=== PATIENT | female | born 1940 | race Caucasian/White ===

== ENCOUNTER 2023-03-09 10:48 | Outpatient (REF) | payer MEDICARE, SELFPAY ==
--- NOTE | ~2023-03-09 | XR_ITS ---
Study: Bilateral hands INDICATION: Chondrocalcinosis. COMPARISON: None TECHNIQUE: 4 views each hand FINDINGS: Right: Advanced diffuse interphalangeal joint space narrowings, sclerosis and spurring, most severe in the third digit with flexed PIP and soft tissue swelling. Soft tissue swelling also seen about the second PIP. Mild MCP joint space narrowings. STT sclerosis and joint space narrowing. Ulnar carpal and radiocarpal calcifications. No fracture. Left: Advanced interphalangeal joint space narrowing sclerosis and spurring, most pronounced second through third DIPs. STT sclerosis and joint space narrowing. Radiocarpal and ulnar carpal calcifications. Arrow points to the base of the thumb. No fracture. XR/XR hand wrist RT IMPRESSION: Advanced osteoarthritic changes bilateral hands. Radiocarpal and ulnar carpal calcifications.
--- NOTE | ~2023-03-09 | XR_ITS ---
Study: Bilateral hands INDICATION: Chondrocalcinosis. COMPARISON: None TECHNIQUE: 4 views each hand FINDINGS: Right: Advanced diffuse interphalangeal joint space narrowings, sclerosis and spurring, most severe in the third digit with flexed PIP and soft tissue swelling. Soft tissue swelling also seen about the second PIP. Mild MCP joint space narrowings. STT sclerosis and joint space narrowing. Ulnar carpal and radiocarpal calcifications. No fracture. Left: Advanced interphalangeal joint space narrowing sclerosis and spurring, most pronounced second through third DIPs. STT sclerosis and joint space narrowing. Radiocarpal and ulnar carpal calcifications. Arrow points to the base of the thumb. No fracture. XR/XR hand wrist LT IMPRESSION: Advanced osteoarthritic changes bilateral hands. Radiocarpal and ulnar carpal calcifications.
[2023-03-09 12:03] LABS: MANUAL DIFF FLAG NO
[2023-03-09 12:49] LABS: Basophils Percent Auto 0.4 % (0-2); Eosinophils Absolute Auto 0.3 X10*3/uL (0.0-0.4); Eosinophils Percent Auto 2.7 % (0-4); Hematocrit 37.3 % (37.0-47.0); Hemoglobin 12.8 g/dl (12.0-16.0); Imm Gran Abs Auto 0.03 X10*3/uL (0.00-0.03); Imm Gran Pct Auto 0.3 % (0.0-0.4); Lymphocytes Absolute Auto 1.8 X10*3/uL (1.2-4.9); Lymphocytes Percent Auto 19.9 % (20-40); Mean Corpuscular HGB Conc 34.3 g/dl (31.0-35.0); Mean Corpuscular Hemoglobin 32.7 pg (27.0-33.0); Mean Corpuscular Volume 95.2 fL (80.0-98.0); Mean Platelet Volume 10.3 fL (9.4-12.3); Monocytes Absolute Auto 0.8 X10*3/uL (0.1-1.2); Neutrophils Absolute Auto 6.2 x10*3/uL (2.0-8.3); Neutrophils Percent Auto 67.7 % (45-73); Platelet Count 363 X10*3/uL (160-400); Red Blood Count 3.92 X10*6/uL (4.20-5.50); Red Cell Distribution Width 11.9 % (11.0-16.0); White Blood Count 9.2 X10*3/uL (4.8-10.8)
[2023-03-09 13:13] LABS: Rheumatoid Factor < 13.0 IU/mL (<15.0)
[2023-03-09 13:34] LABS: Erythrocyte Sedimentation Rate 28 MM/HR (0-20)
[2023-03-09 13:46] LABS: Alanine Aminotransferase 19 U/L (0-31); Albumin Level 4.3 g/dL (3.5-5.0); Alkaline Phosphatase 70 U/L (39-117); Anion Gap 17 (12-20); Aspartate Amino Transferase 21 U/L (5-31); Bilirubin Total 0.5 mg/dL (0.0-1.0); Blood Urea Nitrogen 8 mg/dL (9-16); C Reactive Protein 0.17 mg/dL (< or = 0.50); Calcium 9.6 mg/dL (8.4-10.2); Carbon Dioxide 23 mmol/L (22-29); Chloride 100 mmol/L (96-108); Estimated Glomerular Filt Rate > 60; Ferritin 105 ng/mL (10-250); Glucose Random 114 mg/dL (60-115); Iron 80 mcg/dL (30-160); Percent Iron Saturation 28 % (15-50); Phosphorus 3.5 mg/dL (2.7-4.5); Potassium 4.2 mmol/L (3.3-5.1); Sodium 136 mmol/L (135-145); Total Iron Binding Capacity 288 mcg/dL (228-428); Unsaturated Iron Binding 208 ug/dL; Uric Acid 5.3 mg/dL (2.4-5.7)
[2023-03-12 04:15] LABS: HBS Num1 0.37 mIU/mL (0-7.99); HBc Num1 0.13 S/CO (0.00-0.79); Hepatitis A Antibody IgM 0.33 Index (0-0.79); Hepatitis B Core Antibody Nonreactive (Nonreactive); Hepatitis B Surface Antigen Negative (Negative); ~HepC Num1 0.05 S/CO (0.00-0.79); ~Hepatitis A Antibody IgM Nonreactive (Nonreactive); ~Hepatitis B Surface Antibody NONREACTIVE (Nonreactive); ~Hepatitis C Antibody Nonreactive (Nonreactive)
[2023-03-12 09:44] LABS: Prot Elec - Alpha1 0.3 g/dL (0.2-0.3); Prot Elec - Alpha2 0.9 g/dL (0.5-0.9); Prot Elec - Beta 1 0.5 g/dL (0.4-0.6); Prot Elec - Beta 2 0.4 g/dL (0.2-0.5); Prot Elec - Gamma 0.5 g/dL (0.8-1.7); Prot Elec - Total Protein 6.6 g/dL (6.1-8.1)
[2023-03-12 13:22] LABS: Calcium (PTHI) 9.7 mg/dL (8.6-10.4); PTHI 53 pg/mL (16-77)
[2023-03-12 16:38] LABS: Transferrin 261 mg/dL (188-341)
[2023-03-13 12:13] LABS: Cyclic Citrullinated Peptide <16 UNITS
[2023-03-14 16:09] LABS: VITAMIN D (1,25 OH) D3 56 pg/mL; Vit D (1,25-Dihydroxy) Total 56 pg/mL (18-72); Vitamin D (1,25 OH) D2 <8 pg/mL
[2023-03-15 11:23] LABS: IgA 171 mg/dL (70-320); IgG 579 mg/dL (600-1540); IgM 18 mg/dL (50-300)
== END 2023-03-09 10:49 | disposition home or self-care (01) ==
LOC: HO.LAB 10:48
PROVIDERS: PCP Physician Assistant Medical; Visit Provider Student in an Organized Health Care Education/Training Program
DX: M25.541 Pain in joints of right hand (principal); M11.20 Other chondrocalcinosis, unspecified site; E83.119 Hemochromatosis, unspecified; D86.9 Sarcoidosis, unspecified; Z13.21 Encounter for screening for nutritional disorder; Z11.59 Encounter for screening for other viral diseases; Z72.89 Other problems related to lifestyle; Z79.899 Other long term (current) drug therapy
CPT/HCPCS: 36415; 73110; 73130; 80053; 82652; 82728; 82784; 83540; 83970; 84100; 84165; 84466; 84550; 85025; 85652; 86140; 86200; 86334; 86431; 86704; 86706; 86709; 86803; 87340; 99202

== ENCOUNTER 2023-03-09 10:48 | Outpatient (AMB) | payer MEDICARE, SELFPAY ==
[2023-03-09 10:57] VITALS: BP 110/70; PULSE 45; TEMP 36.3; O2SAT 92; BMI 31.0
--- NOTE | 2023-03-09 10:57 | A.OFFVIS_ITS ---
Intake Vital Signs 03/09/23 10:57 Height 5 ft 1 in Weight 164 lb 3.91 oz BMI 31.0 BP 110/70 Blood Pressure Location Rt brachial Position Sitting Pulse 45 L Pulse Source Pulse Oximeter Temp 97.3 F Temp Source Skin Pulse Oximetry (%) 92 Intake Visit Reasons: Hand pain Intake Note: * New pt presents today for hand pain consult. * C/o bl hand pain, mostly on the right. 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 Accompanied by: Self / Same As Patient Allergies amoxicillin Allergy (Mild, Verified 05/13/21 14:14) hives Iodinated Contrast Media Adverse Reaction (Unknown, Verified 03/09/23 11:01) Unknown hydrochlorothiazide Adverse Reaction (Verified 03/09/23 11:01) Unknown benedryl Allergy (Intermediate, Uncoded 05/13/21 14:14) jitters, unable to speak Medication List - Last Reconciled 03/09/23 by Juan Weber MD acetaminophen (Tylenol Extra Strength) 500 mg PO Q6H PRN amlodipine 5 mg PO DAILY apixaban (Eliquis) 5 mg PO BID atorvastatin 80 mg PO DAILY levothyroxine 125 mcg PO DAILY losartan 100 mg PO DAILY meclizine 25 mg PO TID PRN metformin 500 mg PO QAM metoclopramide HCl 10 mg PO DAILY multivitamin 1 tab PO DAILY naproxen 500 mg PO BID omeprazole 20 mg PO DAILY oxybutynin chloride 5 mg PO BID potassium chloride ER (Klor-Con M) 20 mEq PO DAILY HPI HPI Comments History of Present Illness Details This is an 83-year-old female who was referred for evaluation of hand pain. Back in October of 2022 patient was admitted to the hospital for abdominal pain and was found to have small bowel obstruction, she was treated with NG tube and discharged after 3 days. While hospitalized patient had relatively abrupt onset of left hand pain swelling and erythema. She then followed up with her PCP and an x-ray was done of the right hand which showed some findings suspicious for chondrocalcinosis. Patient states that this was the 1st time this happens to her. She has chronic lower back pain and stiffness. She gets intermittent pain and stiffness of her hands. Denies any swelling. Denies any family history of gout. Denies any history of kidney stones. Denies rashes [facility] Medical History Afib Bilateral carotid artery stenosis Chronic back pain Depression GERD (gastroesophageal reflux disease) Heart failure with preserved ejection fraction Hyperlipidemia Hypertension Hypothyroidism MIKO (obstructive sleep apnea) Type 2 diabetes mellitus Surgical History History of partial hysterectomy Hx of appendectomy Hx of basal cell carcinoma excision Hx of carpal tunnel repair Hx of cholecystectomy Hx of colonoscopy Hx of knee surgery Family History Sister Breast cancer Mother Diabetes Myocardial infarction Daughter Breast cancer Rheumatoid arthritis Fibromyalgia Psoriatic arthritis Osteoarthritis Father MVA (motor vehicle accident) Brother Diabetes Leukemia Family/Other Multiple sclerosis Social History Household Members: None Alcohol intake: current Alcohol intake frequency: a few times a week Patient Tobacco Use Status: Never used Tobacco Current occupational status: retired 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 Female Reproductive History Menstrual Total pregnancies: 3 Full term: 3 Review of Systems Const Reports fatigue and Reports weakness ENT Reports dizziness Reports nocturia and Reports vaginal dryness Skin/Breast Reports unusual bruising Neuro Reports dizziness, Reports memory loss and Reports weakness Psych Reports memory loss Endo Reports fatigue Physical Exam Vital Signs: Last Vital Signs Temp 97.3 F 03/09/23 10:57 Pulse 45 L 03/09/23 10:57 BP 110/70 03/09/23 10:57 Pulse Ox 92 03/09/23 10:57 BMI result Body Mass Index 31.0 Const General: cooperative, healthy appearing and comfortable Nutritional Appearance: obese Orientation/consciousness: patient oriented x3 Limitations: no limitations HEENT Head: Yes normocephalic and Yes atraumatic Mouth: moist mucous membranes Resp Effort & Inspection: normal respiratory effort and able to speak in complete sentences Neuro General: patient oriented x3 Extrem Other: Significant osteoarthritic changes of both hands with prominent Heberden's and Evon's nodes Mildly tender 2nd and 3rd MCPs bilaterally No swollen or tender joints otherwise. No tophi noted Results Reviewed Results Reviewed: Right hand, 3 views. ? History pain and swelling. There are prominent degenerative and erosive changes in the DIP and PIP joints of all fingers. There are soft tissue calcifications adjacent to the 3rd 4th and 5th metacarpophalangeal joints. There are soft tissue calcifications in the vicinity of the triangular fibrocartilage as well as are adjacent to the radial styloid process. No acute fractures or dislocations. ? CONCLUSIONS: Multisite degenerative and erosive changes. Periarticular soft tissue calcifications. Calcifications of the triangular fibrocartilage. Possibility of from chondrocalcinosis should be considered. ? Reading Radiologist: Assessment & Plan Assessment & Plan (1) Pseudogout: Code(s): M11.20 - Other chondrocalcinosis, unspecified site Plan: This is an 83-year-old female who presents for evaluation of 1 time episode of abrupt onset of left hand pain swelling and erythema. X-ray of the right hand shows signs suggestive of chondrocalcinosis. Will order comprehensive serology to screen for underlying autoimmune rheumatic disease, screen for causes of CPPD. Plan I spent 48 minutes reviewing patient's chart, evaluating patient, ordering diagnostic workup, counseling patient and documenting in the chart Orders: Orders Comprehensive Met. Panel Today M11.20 - Other chondrocalcinosis, unspecified site C Reactive Protein Today M11.20 - Other chondrocalcinosis, unspecified site Phosphorus Today M11.20 - Other chondrocalcinosis, unspecified site PTHI Today M11.20 - Other chondrocalcinosis, unspecified site Uric Acid Today M11.20 - Other chondrocalcinosis, unspecified site Vitamin D 1,25 OH LC/MS/MS Today Z13.21 - Encounter for screening for nutritional disorder Complete Blood Count Auto Diff Today M11.20 - Other chondrocalcinosis, unspecified site Erythrocyte Sedimentation Rate Today M11.20 - Other chondrocalcinosis, unspecified site Immunofixation Pnl, Serum Today M11.20 - Other chondrocalcinosis, unspecified site Protein Electrophoresis, Serum Today M11.20 - Other chondrocalcinosis, unspecified site Hepatitis A,B,C Profile Today Z11.59 - Encounter for screening for other viral diseases XR hand wrist LT Today M11.20 - Other chondrocalcinosis, unspecified site XR hand wrist RT Today M11.20 - Other chondrocalcinosis, unspecified site Cyclic Citrullinated Peptide Today M25.541 - Pain in joints of right hand Rheumatoid Factor Today M25.541 - Pain in joints of right hand Ferritin Today E83.119 - Hemochromatosis, unspecified IRON PROFILE Today E83.119 - Hemochromatosis, unspecified Transferrin Today E83.119 - Hemochromatosis, unspecified Coding Level of Care Code New Pt Level 4 (70360) Diagnoses Pseudogout M11.20
== END 2023-03-09 11:36 | disposition home or self-care (01) ==
PROVIDERS: PCP Physician Assistant Medical; Visit Provider Student in an Organized Health Care Education/Training Program
DX: M11.20 Other chondrocalcinosis, unspecified site (principal)
CPT/HCPCS: 99204

== ENCOUNTER 2023-05-04 11:22 | Outpatient (AMB) | payer MEDICARE, SELFPAY ==
--- NOTE | 2023-05-04 11:26 | MHC.OFFVIS ---
Intake Vital Signs 05/04/23 11:28 05/04/23 11:39 Height 5 ft 1 in Weight 164 lb 3.91 oz BMI 31.0 BP 158/80 H 142/76 H Blood Pressure Location Rt brachial Rt brachial Position Sitting Sitting Pulse 60 Pulse Source Pulse Oximeter Temp 97.4 F Temp Source Skin Pulse Oximetry (%) 97 Intake Visit Reasons: Pseudogout Intake Note: Pt seen today for follow up. Pain and swelling mainly right hand when holding things Allergies amoxicillin Allergy (Mild, Verified 05/13/21 14:14) hives Iodinated Contrast Media Adverse Reaction (Unknown, Verified 03/09/23 11:01) Unknown hydrochlorothiazide Adverse Reaction (Verified 03/09/23 11:01) Unknown benedryl Allergy (Intermediate, Uncoded 05/13/21 14:14) jitters, unable to speak Medication List - Last Reconciled 05/04/23 by Juan Weber MD acetaminophen (Tylenol Extra Strength) 500 mg PO Q6H PRN amlodipine 5 mg PO DAILY apixaban (Eliquis) 5 mg PO BID atorvastatin 80 mg PO DAILY levothyroxine 125 mcg PO DAILY losartan 100 mg PO DAILY meclizine 25 mg PO TID PRN metformin 500 mg PO QAM metoclopramide HCl 10 mg PO DAILY multivitamin 1 tab PO DAILY omeprazole 20 mg PO DAILY oxybutynin chloride 5 mg PO BID potassium chloride ER (Klor-Con M) 20 mEq PO DAILY HPI HPI Comments History of Present Illness Details Patient returns for follow-up after completion of her blood work and x-rays. Feeling about the same. She gets pain in the base of her left thumb associated with some swelling, worse with activity. States that her right 3rd 4th and 5th fingers lock up in flexion sometimes. Initial history: This is an 83-year-old female who was referred for evaluation of hand pain. Back in October of 2022 patient was admitted to the hospital for abdominal pain and was found to have small bowel obstruction, she was treated with NG tube and discharged after 3 days. While hospitalized patient had relatively abrupt onset of left hand pain swelling and erythema. She then followed up with her PCP and an x-ray was done of the right hand which showed some findings suspicious for chondrocalcinosis. Patient states that this was the 1st time this happens to her. She has chronic lower back pain and stiffness. She gets intermittent pain and stiffness of her hands. Denies any swelling. Denies any family history of gout. Denies any history of kidney stones. Denies rashes [facility] Medical History Afib Depression Chronic back pain Hypothyroidism GERD (gastroesophageal reflux disease) Hyperlipidemia Hypertension MIKO (obstructive sleep apnea) Heart failure with preserved ejection fraction Bilateral carotid artery stenosis Type 2 diabetes mellitus Surgical History Hx of carpal tunnel repair History of partial hysterectomy Hx of knee surgery Hx of colonoscopy Hx of basal cell carcinoma excision Hx of cholecystectomy Hx of appendectomy Family History Sister Breast cancer Mother Diabetes Myocardial infarction Daughter Breast cancer Rheumatoid arthritis Fibromyalgia Psoriatic arthritis Osteoarthritis Father MVA (motor vehicle accident) Brother Diabetes Leukemia Family/Other Multiple sclerosis Social History Household Members: None Alcohol intake: current Alcohol intake frequency: a few times a week Patient Tobacco Use Status: Never used Tobacco Current occupational status: retired 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 Review of Systems [facility] [place] Reports arthralgias, Reports joint swelling, Reports limited range of motion and Reports stiffness Physical Exam Vital Signs: Last Vital Signs Temp 97.4 F 05/04/23 11:28 Pulse 60 05/04/23 11:28 BP 142/76 H 05/04/23 11:39 Pulse Ox 97 05/04/23 11:28 BMI result Body Mass Index 31.0 Const General: cooperative, healthy appearing and comfortable Nutritional Appearance: obese Orientation/consciousness: patient oriented x3 Limitations: no limitations HEENT Head: Yes normocephalic and Yes atraumatic Mouth: moist mucous membranes Resp Effort & Inspection: normal respiratory effort and able to speak in complete sentences Neuro General: patient oriented x3 Extrem Other: Significant osteoarthritic changes of both hands with prominent Heberden's and Evon's nodes Right 1st CMC crepitus with grind test Reduced flexion of right 3rd 4th and 5th PIP is Mildly thickened flexor tendons without triggering No tophi noted Assessment & Plan Assessment & Plan (1) Pseudogout: Code(s): M11.20 - Other chondrocalcinosis, unspecified site Plan: This is an 83-year-old female who presents for evaluation of 1 time episode of abrupt onset of left hand pain swelling and erythema in the context of hospital admission for small-bowel obstruction X-ray of the right hand shows signs suggestive of chondrocalcinosis. Clinical picture consistent with 1 attack of pseudogout. Labs to investigate secondary causes of CPPD arthritis were negative. Patient continues to get intermittent stiffness of her fingers, pain in her thumbs. Has not had any recurrent attacks of pseudogout. Clinical picture consistent with hand osteoarthritis. Discussed referral to occupational therapy. Patient is not interested at this time. Advised patient to return to clinic if she develops another attack. Plan I spent 18 minutes reviewing patient's chart, evaluating patient, counseling patient and documenting in the chart Coding Level of Care Code Est Pt Level 3 (10714) Diagnoses Pseudogout M11.20
[2023-05-04 11:28] VITALS: BP 158/80; PULSE 60; TEMP 36.3; O2SAT 97; BMI 31.0
[2023-05-04 11:39] VITALS: BP 142/76
== END 2023-05-04 11:54 | disposition home or self-care (01) ==
PROVIDERS: PCP Physician Assistant Medical; Visit Provider Student in an Organized Health Care Education/Training Program
DX: M11.20 Other chondrocalcinosis, unspecified site (principal)
CPT/HCPCS: 99213

== ENCOUNTER → 2023-05-04 11:22 | Outpatient (BNVA) | payer MEDICARE, SELFPAY | PROVIDERS: PCP Physician Assistant Medical; Visit Provider Student in an Organized Health Care Education/Training Program | DX: M11.20 Other chondrocalcinosis, unspecified site (principal) | CPT/HCPCS: 99212 ==